=== PATIENT | female | born 1955 | race Caucasian/White ===

== ENCOUNTER 2017-12-11 12:50 | Outpatient (CLI) | payer OTHER | END 2017-12-11 20:12 | disposition home or self-care (01) | LOC: SMA 12:50 | PROVIDERS: ATTEND Family Medicine | DX: R92.8 Other abnormal and inconclusive findings on diagnostic imaging of breast (principal) | CPT/HCPCS: 76641; 77066 ==

== ENCOUNTER 2019-05-20 10:45 | Outpatient (CLI) | payer OTHER | END 2019-05-20 20:32 | disposition home or self-care (01) | LOC: SUS 10:45 | PROVIDERS: ATTEND Family Medicine | DX: Z12.31 Encounter for screening mammogram for malignant neoplasm of breast (principal) | CPT/HCPCS: 77067 ==

== ENCOUNTER 2020-07-27 11:34 | Outpatient (CLI) | payer OTHER | END 2020-07-27 20:31 | disposition home or self-care (01) | LOC: SMA 11:34 | PROVIDERS: ATTEND Family Medicine | DX: N60.01 Solitary cyst of right breast (principal) | CPT/HCPCS: 76641; 77066 ==

== ENCOUNTER 2021-09-12 10:16 | Outpatient (CLI) | payer OTHER | END 2021-09-12 19:08 | disposition home or self-care (01) | LOC: SUS 10:16 | PROVIDERS: ATTEND Family Medicine | DX: N60.01 Solitary cyst of right breast (principal); R92.8 Other abnormal and inconclusive findings on diagnostic imaging of breast | CPT/HCPCS: 76641; 77066 ==

== ENCOUNTER 2024-07-03 08:24 | Outpatient (CLI) | payer OTHER | END 2024-07-03 19:05 | disposition home or self-care (01) | LOC: SMA 08:24 | PROVIDERS: ATTEND Family Medicine | DX: Z12.31 Encounter for screening mammogram for malignant neoplasm of breast (principal) | CPT/HCPCS: 77067 ==